=== PATIENT | female | born 1950 | race Caucasian/White ===

== ENCOUNTER → 2016-10-27 | Outpatient (CLI) | payer MEDICARE ==
[~2016-10-27] MED LIST: ACETAMINOPHEN325 MG PO; BENADRYL-DPS25 MG PO; CIPRO500 MG PO; ELIQUIS2.5 MG PO; ELIQUIS5 MG PO; KEFLEX-DPS500 MG PO; MIRALAX DPS17 GM PO; OXY IR DPS5 MG PO; PROAIR RESPICL90 MCG IH; SENOKOT S1 TAB PO; THERAPEUTIC MUL1 TAB PO; ULTRAM DPS50 MG PO; VIBRAMYCIN-DPS100 M1 PO; VITAMIN D2000 UNIT PO; VITAMIN D32000 UNI1 PO; XARELTO15 MG PO; ZANTAC DPS150 MG PO
== END | disposition home or self-care (01) ==
LOC: RAD.S 13:51
DX: S81.802D Unspecified open wound, left lower leg, subsequent encounter (principal); M79.605 Pain in left leg; M79.604 Pain in right leg